=== PATIENT | female | born 1990 | race Caucasian/White ===

== ENCOUNTER 2017-02-15 09:22 | Emergency (ER) | payer OTHER ==
[~2017-02-15] VITALS: Ht 167.6 cm; Wt 104.3 kg
[2017-02-15] MEDS ORDERED: CITALOPRAM (10:03)
[2017-02-15] MEDS ORDERED: BIRTH CONTROL (10:03)
--- NOTE | 2017-02-15 10:28 | ED Back Pain ---
General Chief Complaint: Back Problems Stated Complaint: BACK PAIN Nursing Triage Note: AMBULATED TO ROOM 06 COMPLAINING OF SEVERE LOW BACK PAIN STARTING YESTERDAY AFTER DOING SOME YARD WORK. Nursing Sepsis Screen: No Definite Risk Source of Information: Patient, Family Exam Limitations: No Limitations History of Present Illness Time Seen by Provider: 10:21 Initial Comments The patient presents with a 1 day history of acute lower back pain especially on the left it will radiate to the left hip but no further. No paresthesia, paralysis, saddle anesthesia, incontinence of urine or bowel. She has had this pain before. She was working in the yard lifting heavy rocks over her head and shocking him over a fence yesterday and when she went to stand up she felt a twinge in her lower back at the site of her pain that has progressively gotten worse despite her use of a heating pad and Advil. Allergies and Home Medications Allergies Coded Allergies: Sulfa (Sulfonamide Antibiotics) (Unverified Allergy, Unknown, 07/06/15) Home Medications Cyclobenzaprine HCl 10 Mg Tablet, 10 MG PO Q8H PRN for BACK PAIN, #30 Ref 0 Prescribed by: CRISTOFER LUNA on 02/15/17 1035 [ Control] , (Reported) [Citalopram] , (Reported) Constitutional: No chills, No fever EENTM: no symptoms reported Respiratory: No short of breath Cardiovascular: No chest pain, No edema Gastrointestinal: No abdominal pain, No constipation, No diarrhea, No nausea, No vomiting Genitourinary: No discharge, No dysuria, No frequency Musculoskeletal: see HPI, back pain, No joint pain, No joint swelling, muscle stiffness Skin: No pruritus, No rash Past Lilwqzq-Cixphg-Boikpw Hx Patient Social History Alcohol Use: Denies Use Recreational Drug Use: No Smoking Status: Never a Smoker Recent Foreign Travel: No Contact w/Someone Who Travel: No Recent Infectious Disease Expo: No Surgeries Surgeries: Breast, Gallbladder, Orthopedic Physical Exam Vital Signs Vital Sign - Last 12Hours 02/15/17 09:50 Temp 98.0 Pulse 86 Resp 16 B/P (MAP) 122/82 Pulse Ox 98 Capillary Refill : Less Than 3 Seconds General Appearance: No Apparent Distress, WD/WN Neck: Full Range of Motion, Normal Inspection, Non Tender, Supple Cardiovascular: Regular Rate, Rhythm, No Murmur, Normal Peripheral Pulses Respiratory: Chest Non Tender, Lungs Clear Peripheral Pulses: 3+ Dorsalis Pedis (R), 3+ Left Dors-Pedis (L), 3+ Radial Pulses (R), 3+ Radial Pulses (L) Back: Normal Inspection, No CVA Tenderness, Vertebral Tenderness (lumbar especially paraspinous muscles.) Extremity: Normal Capillary Refill, No Pedal Edema Neurologic/Psychiatric: Alert, Oriented x3, No Motor/Sensory Deficits, Other ( deep tendon reflexes bilateral knees intact.) Skin: Normal Color, Warm/Dry Lymphatic: No Adenopathy Progress/Results/Core Measures Results/Orders Vital Signs/I&O Vital Sign - Last 12Hours 02/15/17 02/15/17 09:50 10:42 Temp 98.0 98.0 Pulse 86 86 Resp 16 16 B/P (MAP) 122/82 Pulse Ox 98 98 Blood Pressure Mean: 95 Departure Impression Impression: Primary Impression: Back pain Qualified Codes: M54.5 - Low back pain Disposition: 01 HOME, SELF-CARE Condition: Improved Departure-Patient Inst. Decision time for Depature: 10:32 Referrals: LOLA BRUCE MD (PCP) Primary Care Physician Patient Instructions: Lumbar Muscle Strain (DC) Add. Discharge Instructions: You have strained your lower back muscles and these will respond favorably with the muscle relaxant to be taken every 8 hours as needed. If the muscle relaxant makes her too drowsy and cut the dose in half. You should also continue to take the Advil 2 tablets twice daily and use Tylenol for breakthrough pain. Use a heating pad, back brace and icy hot or other cream of your choice. This pain will usually resolve on its own in a few weeks. Stay mobile. If her pain is getting worse or you're having new symptoms such as numbness weakness or inability to control your continence of bowel or bladder then you should report to the ER or your primary care physician immediately. If your pain is not getting better in the next few weeks he should also report your primary care physician for other options. All discharge instructions reviewed with patient and/or family. Voiced understanding. Scripts Cyclobenzaprine HCl (Cyclobenzaprine HCl) 10 Mg Tablet 10 MG PO Q8H Y for BACK PAIN, #30 TAB 0 Refills Prov: CRISTOFER LUNA 02/15/17 Copy Copies To 1: LOLA BRUCE MD, TITUS J February 15, 2017 10:28
[2017-02-15] MEDS ORDERED: CYCL10TA9 PO (10:35)
[2017-02-15 10:42] VITALS: BP 122/82
== END 2017-02-15 10:42 | disposition home or self-care (01) ==
LOC: EDUNIT# 09:22 → ER 09:25
DX: M54.5 Low back pain (principal)
CPT/HCPCS: 99281

== ENCOUNTER 2018-07-20 15:00 | Outpatient (RCR) | payer BC ==
[~2018-07-20 15:00] MED LIST: BIRTH CONTROL; CITALOPRAM; CYCL10TA9 PO
== END 2018-07-28 11:16 | disposition home or self-care (01) ==
PROVIDERS: ATTEND Family Medicine
DX: M54.16 Radiculopathy, lumbar region (principal)

== ENCOUNTER 2021-10-16 10:03 | Emergency (ER) | payer BC ==
[~2021-10-16] VITALS: Ht 167 cm; Wt 104.0 kg
[~2021-10-16 10:03] MED LIST changes: +CYCL10TA25 PO; -CYCL10TA9 PO
--- NOTE | 2021-10-16 10:52 | ED General ---
General Chief Complaint: COVID19 Suspect/Confirmed Stated Complaint: COVID+ Nursing Triage Note: Pt here with covid positive test and soa and burning of the chest. Source of Information: Patient Exam Limitations: No Limitations History of Present Illness Date Seen by Provider: Oct 16, 2021 Time Seen by Provider: 10:50 Initial Comments To ER with dyspnea on exertion and chest tightness. The symptoms began on 10/11/2021. She tested positive at her place of work, [email or web address] on 10/14/2021. She is otherwise healthy she has been vaccinated with no [employer] vaccines. She denies fevers headache nausea. She only complains of dyspnea on exertion and chest tightness. She is currently on Zithromax and prednisone by primary care started on Saturday 10/14. Timing/Duration: 3-4 Days Severity: Moderate Associated Systoms: Denies Symptoms Allergies and Home Medications Allergies Coded Allergies: Sulfa (Sulfonamide Antibiotics) (Unverified Allergy, Unknown, 07/06/15) Patient Home Medication List Home Medication List Reviewed: Yes Cyclobenzaprine HCl (Cyclobenzaprine HCl) 10 Mg Tablet, 10 MG PO Q8H PRN for BACK PAIN Prescribed by: CRISTOFER LUNA on 02/15/17 1035 [ Control] , (Reported) Entered as Reported by: SHEREE HINKLE on 02/15/17 1003 [Citalopram] , (Reported) Entered as Reported by: SHEREE HINKLE on 02/15/17 1003 Review of Systems Review of Systems Constitutional: see HPI; No chills, No fever, No malaise EENTM: see HPI Respiratory: see HPI; No cough; short of breath Cardiovascular: see HPI, chest pain Genitourinary: no symptoms reported Musculoskeletal: no symptoms reported Skin: no symptoms reported Psychiatric/Neurological: No Symptoms Reported Past Otwwxwv-Aozvaa-Khsppy Hx Patient Social History Tobacco Use?: No Substance use?: No Alcohol Use?: No Pt feels they are or have been: No Immunizations Up To Date First/Initial COVID19 Vaccinat: November 2020 Second COVID19 Vaccination Enrique: December 2020 Past Medical History Surgeries: Yes (CHOCLEAR IMPLANT) Breast, Gallbladder, Orthopedic Respiratory: No Cardiac: No Neurological: No Last Menstrual Period: Oct 09, 2021 Genitourinary: No Gastrointestinal: No Musculoskeletal: No Endocrine: No HEENT: No Cancer: No Did You Recieve Any Treatments: No Psychosocial: No Integumentary: No Physical Exam Vital Signs Vital Signs - First Documented 10/16/21 10:42 Temp 36.4 Pulse 119 Resp 18 B/P (MAP) 157/103 (121) Pulse Ox 96 O2 Delivery Room Air Capillary Refill : Less Than 3 Seconds Height, Weight, BMI Height: 5'6.00" Weight: 230lbs. oz. 104.573829fq; 37.00 BMI Method:Estimated General Appearance: No Apparent Distress, WD/WN Eyes: Bilateral Eye Normal Inspection, Bilateral Eye PERRL, Bilateral Eye EOMI HEENT: PERRL/EOMI, TMs Normal Neck: Full Range of Motion, Normal Inspection Respiratory: No Accessory Muscle Use, No Respiratory Distress Cardiovascular: Normal Peripheral Pulses, Tachycardia (110 no distress) Gastrointestinal: Normal Bowel Sounds, Non Tender, Soft Extremity: Normal Capillary Refill, Normal Inspection Neurologic/Psychiatric: Alert, Oriented x3 Skin: Normal Color, Warm/Dry Progress/Results/Core Measures Suspected Sepsis SIRS Temperature: Pulse: 119 Respiratory Rate: 18 Laboratory Tests 10/16/21 10:57: White Blood Count 11.9H Blood Pressure 157 /103 Mean: 121 Laboratory Tests 10/16/21 10:57: Creatinine 0.64, Platelet Count 324, Total Bilirubin 0.2 Results/Orders Lab Results Laboratory Tests Test 10/16/21 10:57 Range/Units White Blood Count 11.9 H 4.3-11.0 10^3/uL Red Blood Count 5.35 H 3.80-5.11 10^6/uL Hemoglobin 15.1 11.5-16.0 g/dL Hematocrit 45 35-52 % Mean Corpuscular Volume 84 80-99 fL Mean Corpuscular Hemoglobin 28 25-34 pg Mean Corpuscular Hemoglobin Concent 34 32-36 g/dL Red Cell Distribution Width 12.8 10.0-14.5 % Platelet Count 324 130-400 10^3/uL Mean Platelet Volume 10.4 9.0-12.2 fL Immature Granulocyte % (Auto) 1 % Neutrophils (%) (Auto) 83 H 42-75 % Lymphocytes (%) (Auto) 12 12-44 % Monocytes (%) (Auto) 4 0-12 % Eosinophils (%) (Auto) 0 0-10 % Basophils (%) (Auto) 0 0-10 % Neutrophils # (Auto) 9.8 H 1.8-7.8 10^3/uL Lymphocytes # (Auto) 1.4 1.0-4.0 10^3/uL Monocytes # (Auto) 0.5 0.0-1.0 10^3/uL Eosinophils # (Auto) 0.0 0.0-0.3 10^3/uL Basophils # (Auto) 0.0 0.0-0.1 10^3/uL Immature Granulocyte # (Auto) 0.1 0.0-0.1 10^3/uL D-Dimer 0.32 0.00-0.49 UG/ML Sodium Level 137 135-145 MMOL/L Potassium Level 3.7 3.6-5.0 MMOL/L Chloride Level 107 98-107 MMOL/L Carbon Dioxide Level 20 L 21-32 MMOL/L Anion Gap 10 5-14 MMOL/L Blood Urea Nitrogen 12 7-18 MG/DL Creatinine 0.64 0.60-1.30 MG/DL Estimat Glomerular Filtration Rate 122 BUN/Creatinine Ratio 19 Glucose Level 124 H 70-105 MG/DL Calcium Level 8.9 8.5-10.1 MG/DL Corrected Calcium 9.1 8.5-10.1 MG/DL Total Bilirubin 0.2 0.1-1.0 MG/DL Aspartate Amino Transf (AST/SGOT) 22 5-34 U/L Alanine Aminotransferase (ALT/SGPT) 38 0-55 U/L Alkaline Phosphatase 55 40-136 U/L Troponin I < 0.028 <0.028 NG/ML C-Reactive Protein High Sensitivity 2.15 H 0.00-0.50 MG/DL Total Protein 6.8 6.4-8.2 GM/DL Albumin 3.8 3.2-4.5 GM/DL My Orders Orders - DANIAL BARON ASSISTANT DIRECTOR OF ADMISSIONS Cbc With Automated Diff (10/16/21 10:52) Hs C Reactive Protein (10/16/21 10:52) Comprehensive Metabolic Panel (10/16/21 10:52) Troponin I Reina (10/16/21 10:52) Ekg Tracing (10/16/21 10:52) Chest 1 View, Ap/Pa Only (10/16/21 10:52) Procalcitonin (Pct) (10/16/21 10:52) Fibrin Degradation Products (10/16/21 10:52) Hcg,Qualitative Serum (10/16/21 10:52) Ed Iv/Invasive Line Start (10/16/21 10:52) Lactated Ringers (Lr 1000 Ml Iv Solution (10/16/21 11:00) Vital Signs/I&O 10/16/21 10:42 Temp 36.4 Pulse 119 Resp 18 B/P (MAP) 157/103 (121) Pulse Ox 96 O2 Delivery Room Air Capillary Refill : Less Than 3 Seconds Blood Pressure Mean: 121 Departure Communication (Admissions) Family Conversation NAME: MARY JO TAMAYO MED REC#: [id number] PT STATUS: REG ER : 1990 PHYSICIAN: DANIAL BARON APRN ADMIT DATE: 10/16/21/ER Draft Date of Exam:10/16/21 CHEST 1 VIEW, AP/PA ONLY Indication: Cough. TIME OF EXAM: 11:13 AM No prior studies are available for comparison. FINDINGS: The heart size is normal. The pulmonary vascularity is unremarkable. The lungs are clear. No infiltrate, effusion or pneumothorax is detected. IMPRESSION: No acute cardiopulmonary process is detected. Dictated on workstation # [id number] Dict: 10/16/21 1115 Trans: 10/16/21 1119 [facility] [id number] Interpreted by: MISA GAR MD Electronically signed by: EKG shows a heart rate of 87 sinus rhythm normal intervals no ectopy no ST segment change Impression Primary Impression: COVID-19 Disposition: 01 HOME, SELF-CARE Condition: Stable Departure-Patient Inst. Decision time for Depature: 11:20 Referrals: LOLA BRUCE MD (PCP/Family) Primary Care Physician Patient Instructions: COVID-19 ED DANIAL BARON APRN Oct 16, 2021 10:52
[2021-10-16] MEDS ORDERED: LACTATED RINGERS 1,000 ML IV SCH (11:00)
[2021-10-16 11:16] LABS: BASOPHILS % (AUTO) 0 % (0-10); EOSINOPHILS % (AUTO) 0 % (0-10); HEMATOCRIT 45 % (35-52); HEMOGLOBIN 15.1 g/dL (11.5-16.0); LYMPHOCYTES # (AUTO) 1.4 10^3/uL (1.0-4.0); LYMPHOCYTES % (AUTO) 12 % (12-44); MEAN CORPUSCULAR HEMOGLOBIN 28 pg (25-34); MEAN CORPUSCULAR HGB CONC 34 g/dL (32-36); MEAN CORPUSCULAR VOLUME 84 fL (80-99); MEAN PLATELET VOLUME 10.4 fL (9.0-12.2); MONOCYTES # (AUTO) 0.5 10^3/uL (0.0-1.0); MONOCYTES % (AUTO) 4 % (0-12); NEUTROPHILS # (AUTO) 9.8 10^3/uL (1.8-7.8); NEUTROPHILS % (AUTO) 83 % (42-75); PLATELET COUNT 324 10^3/uL (130-400); WHITE BLOOD COUNT 11.9 10^3/uL (4.3-11.0)
--- NOTE | 2021-10-16 11:19 | Diagnostic Imaging Report ---
Indication: Cough. TIME OF EXAM: 11:13 AM No prior studies are available for comparison. FINDINGS: The heart size is normal. The pulmonary vascularity is unremarkable. The lungs are clear. No infiltrate, effusion or pneumothorax is detected. IMPRESSION: No acute cardiopulmonary process is detected. Dictated by: Dictated on workstation # [id number]
[2021-10-16 11:26] LABS: ALBUMIN 3.8 GM/DL (3.2-4.5); CHLORIDE 107 MMOL/L (98-107); POTASSIUM 3.7 MMOL/L (3.6-5.0); SODIUM 137 MMOL/L (135-145)
[2021-10-16 11:27] LABS: CALCIUM 8.9 MG/DL (8.5-10.1)
[2021-10-16 11:29] LABS: GLUCOSE 124 MG/DL (70-105); TOTAL PROTEIN 6.8 GM/DL (6.4-8.2)
[2021-10-16 11:30] LABS: BILIRUBIN,TOTAL 0.2 MG/DL (0.1-1.0); CARBON DIOXIDE 20 MMOL/L (21-32)
[2021-10-16 11:32] LABS: ALKALINE PHOSPHATASE 55 U/L (40-136); CREATININE SERUM 0.64 MG/DL (0.60-1.30); GFR ESTIMATED 122
[2021-10-16 11:34] LABS: BUN/CREATININE RATIO 19
[2021-10-16 11:35] LABS: ALANINE AMINOTRANSFERASE 38 U/L (0-55)
[2021-10-16 12:21] VITALS: BP 157/103
== END 2021-10-16 12:21 | disposition home or self-care (01) ==
LOC: EDUNIT# 10:03 → ER 10:05
DX: U07.1 COVID-19 (principal); R00.0 Tachycardia, unspecified
CPT/HCPCS: 36415; 71045; 80053; 84145; 84484; 85025; 85379; 86141; 93005

== ENCOUNTER → 2022-04-18 | Outpatient (CLI) | payer BC ==
--- NOTE | 2022-04-18 11:25 | Diagnostic Imaging Report ---
EXAMINATION: Lumbosacral spine 2 or 3 views. HISTORY: Radiculopathy, pain. COMPARISON: None available. FINDINGS: Two lateral views with flexion and extension of the lumbar spine provided. There is a grade 1 retrolisthesis at L5-S1 on flexion measuring 2.8 mm of listhesis. This is neutral in positioning with extension. The remaining vertebral bodies are well aligned on flexion imaging. However, there is grade 1 retrolisthesis with extension at L2-L3, measuring 3.3 mm at L2-L3 and 3 mm at L3-L4. At L4-L5, minimal retrolisthesis is seen with extension only with a measurement of 2.5 mm. Intervertebral disc spaces appear preserved. There is facet hypertrophy at L4-L5. Similar findings at L5-S1. Vertebral body heights are maintained. IMPRESSION: 1. Multilevel areas of retrolisthesis as detailed above with extension. These improve to neutral positioning on flexion. 2. Grade 1 retrolisthesis at L5-S1 with flexion which improves to normal alignment with extension. Dictated by: Dictated on workstation # [id number]
== END ==
LOC: RAD 08:20
PROVIDERS: ATTEND Neurological Surgery
DX: M51.16 Intervertebral disc disorders with radiculopathy, lumbar region (principal); M43.16 Spondylolisthesis, lumbar region; M43.17 Spondylolisthesis, lumbosacral region; M47.817 Spondylosis without myelopathy or radiculopathy, lumbosacral region; M47.26 Other spondylosis with radiculopathy, lumbar region
CPT/HCPCS: 72100

== ENCOUNTER → 2022-05-21 | Outpatient (RCR) | payer BC | END | disposition home or self-care (01) | PROVIDERS: ATTEND Neurological Surgery | DX: M51.16 Intervertebral disc disorders with radiculopathy, lumbar region (principal); G57.03 Lesion of sciatic nerve, bilateral lower limbs; I10 Essential (primary) hypertension ==

== ENCOUNTER 2022-05-30 15:30 | Outpatient (RCR) | payer BC | END 2022-06-20 | disposition home or self-care (01) | PROVIDERS: ATTEND Neurological Surgery | DX: M51.16 Intervertebral disc disorders with radiculopathy, lumbar region (principal); G57.03 Lesion of sciatic nerve, bilateral lower limbs; I10 Essential (primary) hypertension ==

== ENCOUNTER → 2022-08-29 | Outpatient (CLI) | payer BC | LOC: LABNPT 10:33 | PROVIDERS: ATTEND Family Medicine | DX: R05.9 Cough, unspecified (principal) | CPT/HCPCS: 87070; 87205 ==

== ENCOUNTER 2022-10-21 16:10 | Outpatient (RCR) | payer BC | END 2022-10-22 00:32 | disposition home or self-care (01) | PROVIDERS: ATTEND Neurological Surgery | DX: G57.02 Lesion of sciatic nerve, left lower limb (principal) ==

== ENCOUNTER 2022-11-14 15:55 | Outpatient (RCR) | payer BC | END 2022-11-18 | disposition home or self-care (01) | PROVIDERS: ATTEND Neurological Surgery | DX: G57.02 Lesion of sciatic nerve, left lower limb (principal); I10 Essential (primary) hypertension ==